=== PATIENT | female | born 1985 | race Caucasian/White ===

== ENCOUNTER → 2016-09-18 | Outpatient (REF) | payer BC ==
[~2016-09-18] MED LIST: IBUP80TA PO; PERCOCET PO; PRENTAB43 PO
== END ==
LOC: M LAB REF 13:14
PROVIDERS: ATTEND Advanced Practice Midwife
DX: Z12.4 Encounter for screening for malignant neoplasm of cervix (principal)

== ENCOUNTER → 2020-02-21 | Outpatient (CLI) | payer SELFPAY | LOC: M LABSMTC 14:04 | PROVIDERS: ATTEND Pediatrics | DX: Z20.828 Contact with and (suspected) exposure to other viral communicable diseases (principal) ==

== ENCOUNTER → 2021-03-10 | Outpatient (REF) ==
[2021-03-10 13:32] LABS: RSV AMPLIFICATION NEGATIVE (NEGATIVE)
== END ==
LOC: M LABSMTC 10:12
PROVIDERS: ATTEND Family Medicine
DX: Z20.822 Contact with and (suspected) exposure to COVID-19 (principal)

== ENCOUNTER → 2023-05-20 | Outpatient (REF) | LOC: M EMP 08:22 | PROVIDERS: ATTEND Family Medicine | DX: Z11.52 Encounter for screening for COVID-19 (principal) ==

== ENCOUNTER → 2023-05-21 | Outpatient (REF) | LOC: M EMP 10:45 | PROVIDERS: ATTEND Family Medicine | DX: Z20.822 Contact with and (suspected) exposure to COVID-19 (principal) ==